=== PATIENT | female | born 1960 | race Caucasian/White ===

== ENCOUNTER → 2017-01-21 | Outpatient (CLI) | payer MEDICARE, MEDICAID ==
[~2017-01-21] MED LIST: ALBU8.5H3 IH; AMIT75TA2 PO; ATOR40TA20 PO; BETAMETHASONE 6mg/ml INJECTION IM ONE; BUPIVACAINE 0.25% (2.5mg/ml) INJ 30ml SDV ONE; CARI1.5C PO; EPIN0.3P8 IM; ESOM40CA24 PO; FLUT16SP12 NS; FURO40TA70 PO; GABA800T75 PO; IBUP-1264 PO; INSU100I2 SQ; INSU3INS3 SQ; IOTHALAMATE MEGLUMINE 60% (600mg/ml) 30ml INJ IV ONE; LEVO200T8 PO; LEVO25TA7 PO; LIDOCAINE 1% (10mg/ml) 5ml VIAL ONE; METF10002 PO; OXCA300T18 PO; PREG200C PO; ZOLP10TA6 PO; [UNRECOGNIZED DRUG - CODE] PO
--- NOTE | 2017-01-21 10:49 | DI ---
Indication:ITS.REASON: M25.511 Pain in right shoulder Procedure:INJECTION/DRN SHOULDER RT W/FL. THERAPEUTIC SHOULDER INJECTION: After discussing the details of the procedure, including the risks, the patient wished to proceed. Informed consent was obtained. A preprocedural timeout was performed to confirm the correct patient and procedure. Using aseptic technique, local lidocaine anesthetic, and fluoroscopic guidance throughout, a 22-gauge infiltrating needle was directed through the rotator cuff interval and into the joint of the right shoulder. A small amount of x-ray contrast was injected to confirm proper intra-articular placement of the needle tip. A fluoroscopic image was obtained. Following this, a combination of 3 cc 1% lidocaine, 3 cc 0.25% bupivacaine, and 1 cc betamethasone were slowly instilled within the joint of the right shoulder. The needle was removed. The patient tolerated this procedure well. Following this, the patient left the imaging department in stable condition. Impression: Technically successful right intra-articular shoulder injection for therapeutic purposes. Fluoroscopy dose: 2.46 mGy (Cumulative air kerma) Armen Robledo RPA/YOLANDE performed this under my personal supervision. .
== END ==
LOC: IMA 09:14
PROVIDERS: ATTEND Physician Assistant Surgical
DX: M25.511 Pain in right shoulder (principal)
CPT/HCPCS: 20610; 77002; J0702; Q9961